=== PATIENT | male | born 1995 | race Caucasian/White ===

== ENCOUNTER 2024-04-18 08:20 | Outpatient (CLI) | payer OTHER, SELFPAY | END 2024-04-18 08:21 | disposition home or self-care (01) | LOC: NFLDREF 04-19 10:01 | PROVIDERS: PCP Family Medicine; Referring Provider Family Medicine; Visit Provider Family Medicine | DX: Z13.1 Encounter for screening for diabetes mellitus (principal); Z13.6 Encounter for screening for cardiovascular disorders | CPT/HCPCS: 80061; 82947 ==

== ENCOUNTER 2025-03-03 02:22 | Outpatient (CLI) | payer OTHER, SELFPAY | END 2025-03-03 02:23 | disposition home or self-care (01) | LOC: AMB 03-05 10:44 | PROVIDERS: PCP Family Medicine; Visit Provider Family Medicine | DX: T14.90XA Injury, unspecified, initial encounter (principal); V88.9XXA Person injured in other specified (collision)(noncollision) transport accidents involving nonmotor vehicle, nontraffic, initial encounter; Y93.9 Activity, unspecified; Y92.9 Unspecified place or not applicable | CPT/HCPCS: A0998 ==

== ENCOUNTER 2025-03-03 03:57 | Emergency (ER) | payer OTHER, SELFPAY ==
[2025-03-03] VITALS (15 sets, daily range): BP systolic 139; BP diastolic 78; PULSE 97; RESP 15–28; TEMP 36; O2SAT 93–97; BMI 33.4
--- OUTSIDE RECORDS SUMMARY | 2025-03-03 03:59 | XMS_ITS | Clinical Summary ---
Author Organization [facility] Address [address] [place] [id number] Care Team Providers Care Freelance Data Entry Name Role Phone Monique Khan MD Primary Care Provid er Allergies No known active allergies Medications No known medications Active Problems No known active problems Immunizations Immunization Administration Dates Next Due DTaP 02/02/2000 Inactivated Polio Vaccine 02/02/2000 MMR 02/02/2000 Meningococcal Vaccine (Menactra) 02/11/2009 Tdap 01/03/2013 Varicella Vaccine 01/12/2007 Social History Tobacco Use Types Packs/Day Years Used Date Smoking Tobacco: Never Alcohol Use Standard Drinks/Week Comments Yes 0 (1 standard drink = 0.6 oz pur e alcohol) Sex and Gender Information Value Date Recorded Sex Assigned at Not on file Legal Sex Male 12:55 PM CDT Gender Identity Not on file Sexual Orientation Not on file Obstetrics History Last Filed Vital Signs Vital Sign Reading Time Taken Comments Blood Pressure 130/74 06/28/2016 11:43 AM CDT Pulse 89 06/28/2016 11:43 AM CDT Temperature 37 C (98.6 F) 06/28/2016 11:43 AM CDT Respiratory Rate 18 06/28/2016 11:4 3 AM CDT Oxygen Saturation 95% 06/28/2016 11: 43 AM CDT Inhaled Oxygen Concentration - - Weight 86.5 kg (190 lb 11.2 oz) 016 11:43 AM CDT Height 182.9 cm (6') 05/28/2016 2:24 PM CDT Body Mass Index 25.86 05/28/2016 2:24 PM CDT Plan of Treatment Health Maintenance Due Date Last Done Comments HIV for age 15-65 2009 Hepatitis C screening for ag e 18-79 2012 BMI (ht and wt on same day) for age 18+ 05/28/2017 05/28/2016, 04/19/2016 Depression screening for age 12+ 05/28/2017 05/28/2016 Tetanus booster 01/03/2023 01/03/2013 COVID-19 vaccine series ( - 2023-25 season) 2024 Influenza Vaccine (Season Ended) 2025 Tdap Completed 01/03/2013 Pneumococcal series for age 6-49 Aged Out No longer eligible b ased on patient's age to complete this topic Insurance [employer] COMMERCIAL on file Care Teams Freelance Data Entry Relationship Specialty Start Date End Date Monique Khan MD [address] [id number] [place] [id number] PCP - General Family Practice 09/02/15
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
[2025-03-03 04:14] LABS: Basophils Percent Auto 0.2 % (0.0-3.0); Eosinophils Percent Auto 0.3 % (0.0-7.0); Hematocrit 45.5 % (37.0-53.0); Hemoglobin* 15.6 gm/dL (13.5-17.5); Lymphocytes Percent Auto 12.7 % (20-44); Mean Corpuscular HGB Conc 34 gm/dL (32-36); Mean Corpuscular Hemoglobin 30 pg (26-34); Mean Corpuscular Volume 88 fL (80-100); Monocytes Percent Auto 6.4 % (0.0-11.0); Neutrophils Percent Auto 79.4 % (42.0-72.0); Platelet Count* 322 K/uL (140-440); RDW Coefficient of Variation % 12.4 % (11.5-15.5)
[2025-03-03 04:19] LABS: White Blood Count* 25.67 K/uL (4.50-11.00)
[2025-03-03 04:20] LABS: Slide Review Reflex Yes
[2025-03-03 04:42] LABS: Chloride* 102 mmol/L (96-114); Potassium* 3.6 mmol/L (3.6-5.1); Sodium* 141 mmol/L (135-149)
[2025-03-03 04:45] LABS: Anion Gap 14 mEq/L (7-15); Blood Urea Nitrogen* 21 mg/dL (5-24); Carbon Dioxide* 25 mmol/L (20-32); Creatinine* 1.2 mg/dL (0.5-1.5); Est. Creatinine Clearance* 104.65; Estimated Glomerular Filt Rate 83 ml/min; Glucose* 132 mg/dL (60-115)
[2025-03-03 05:10] LABS: Slide Review Acceptable Review (Acceptable)
[2025-03-03 05:18] LABS: Ethanol* 0.33 % (0.01-0.03)
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
== END 2025-03-03 05:39 | disposition home or self-care (01) ==
PROVIDERS: Emergency Provider Family Medicine; PCP Family Medicine
DX: S22.31XA Fracture of one rib, right side, initial encounter for closed fracture (principal); S20.211A Contusion of right front wall of thorax, initial encounter; D72.0 Genetic anomalies of leukocytes; F10.129 Alcohol abuse with intoxication, unspecified; V86.65XA Passenger of 3- or 4- wheeled all-terrain vehicle (ATV) injured in nontraffic accident, initial encounter
CPT/HCPCS: 36415; 70450; 70486; 71260; 72125; 74177; 80048; 81001; 82077; 85025; 99284; 99291; Q9967

== ENCOUNTER 2025-06-13 08:38 | Outpatient (CLI) | payer OTHER, SELFPAY | END 2025-06-13 08:39 | disposition home or self-care (01) | LOC: FRMREF 08:40 | PROVIDERS: PCP Family Medicine; Visit Provider Nurse Practitioner Family | DX: E78.5 Hyperlipidemia, unspecified (principal) | CPT/HCPCS: 80061 ==